=== PATIENT | male | born 1975 | race Caucasian/White ===

== ENCOUNTER 2023-03-30 06:49 | Emergency (ER) | payer OTHER, SELFPAY ==
[2023-03-30 06:51] VITALS: BP 181/103; PULSE 80; RESP 16; TEMP 37.1; O2SAT 99; BMI 38.5
--- NOTE | 2023-03-30 06:55 | NURSING ---
NO OLD EKGS
--- NOTE | 2023-03-30 07:28 | EDS_ITS ---
HPI History of Present Illness Chief Complaint: Dizziness Informant: patient Narrative Narrative: Patient is a 48-year-old male with history of hypertension and bipolar disorder presenting for dizziness and nausea. Patient states he has no pain with it. He states on Monday, 5 days ago he was at the gym and bent over and then felt a spinning sensation. Symptoms however abated and he went to work and felt okay. On Monday he woke up feeling dizzy again. The following day he felt good and then the next day again he felt dizzy, stated was hard to focus and a coworker noted he felt pale. He did take a home COVID test that day and it was negative. Yesterday he was feeling fine and then he was worse again today. Initially thought maybe his blood sugar was low as he has had issues with low blood sugar however he checked it and it was in the 90s. He takes some applesauce and rechecked and it was up to the 130s. He denies any headache, hearing changes, vision changes but has had some mild nasal congestion. He is especially concerned because his parents intermittently had similar symptoms. He states his father did have a car monoxide monitor which they put in his room and that was negative/normal. They do a family dog has not been having any vomiting or unsteady gait/symptoms. Patient looked up the symptoms and thought he might have labyrinth-itis. He came in for further evaluation. He denies any symptoms from the neck down. [facility] Medical History Bipolar 1 disorder Hypertension Home Medications meclizine 25 mg tablet 25 mg PO 4X/DAY PRN PRN Dizziness #20 tabs 03/30/23 [Rx Last Taken Unknown] Surgical History History of hernia surgery Social History Smoking Status: Current some day smoker tobacco type: cigars ROS ROS ED Constitutional Constitutional ED: Denies chills or fever(s) Eyes Eyes: Reports other Details: difficulty focusing ; Denies blurry vision, change in vision or diplopia ENT ENT ED: Reports rhinorrhea and other Details: no tinnitus ; Denies ear pain or sore throat Cardiovascular Cardiovascular: Denies chest pain or palpitations Respiratory/Chest Respiratory/Chest: Denies cough Gastrointestinal Gastrointestinal: Reports nausea; Denies abdominal pain or vomiting Musculoskeletal Musculoskeletal: Denies arthralgias, myalgias or neck pain Integumentary Denies rash Neurologic Neurologic: Denies headache(s), paresthesias or weakness EXAM Physical Exam Const Vital Signs: 03/30/23 06:51 03/30/23 06:58 Temperature 98.7 F Temperature Source Temporal Pulse Rate 80 Respiratory Rate 16 Respiratory Effort Non-Labored Respiratory Pattern Normal Blood Pressure 181/103 H Blood Pressure Mean 129 Pulse Ox 99 Oxygen Delivery Method Room Air Positive well nourished and well developed General Appearance ED: well developed and NAD HEENT Reports TM's clear and moist mucous membranes HEENT Narrative: normal nasal mucosa, normal oropharnyx Negative for trauma Tympanic Membrane ED: Yes TM's clear Eyes PERRL and EOMs intact bilaterally Eyes Narrative: Patient has bilateral fatiguing horizontal nystagmus with leftward gaze that reproduces his symptoms. No rotary or upgoing/downgoing nystagmus appreciated. Neck supple and no JVD Chest Wall inspection of chest normal and palpation of chest normal Resp normal respiratory effort and clear to auscultation bilaterally Cardio regular rate, regular rhythm and no murmurs GI normal to inspection, nondistended, normoactive bowel sounds Extremity normal to inspection General Extremety ED: Negative for edema or tenderness General Extremity: Negative for edema Neuro oriented x3, CN's II-XII intact bilaterally and no sensory deficits noted Neuro Narrative: Normal finger-nose, no truncal ataxia, normal gait, normal [id number] Sensorium / Orientation: alert Motor Exam: strength 5/5 throughout; Negative for general weakness Psych mental status grossly normal Mood & Affect: anxious Skin no rashes or lesions noted MDM MDM MDM Narrative Medical decision making narrative: Patient is evaluated for about 5 days of intermittent episodes of vertigo. He has reproducible vertigo with head movement on exam. His symptoms are quite mild. Blood pressure is mildly elevated however he does have a history of hypertension is quite anxious upon arrival. Patient did express some concern about his blood sugar and I did offered to check a BMP however patient states he just had a full lab work-up including a CMP performed and does not think that is necessary. Clinically I suspect this is peripheral vertigo and I do not suspect a central process. He does not have any other associate symptoms such as tinnitus or hearing change suggestive of labyrinthitis or M?ni?re's disease. Patient counseled that likely this is associated with either allergies or a mild viral syndrome which she does states the household has had as well. As his room was already checked for carbon monoxide he is not having any headaches have a lower suspicion for carbon monoxide poisoning. Patient is discharged with a course of meclizine and given first dose in the emergency room as well as follow-up with ENT as needed. Patient counseled to follow-up with PCP as well. Given return precautions. Discharged home in stable condition. Discharge Plan Triage Chief Complaint: Dizziness ED Provider: Francesca Ramirez Dx/Rx/DC Orders Clinical Impression: Benign paroxysmal positional vertigo Instructions: ED BPV Vertigo Prescriptions: New meclizine 25 mg tablet 25 mg PO 4X/DAY PRN PRN (Reason: Dizziness) Qty: 20 0RF Referrals: Nickolas Espinoza MD [Med Staff - Active Staff] - As Needed Disposition Disposition: Home, Self Care
[2023-03-30] MEDS: Meclizine HCl 25 MG Tablet PO (07:39)
== END 2023-03-30 07:48 | disposition home or self-care (01) ==
PROVIDERS: Emergency Provider Emergency Medicine; Visit Provider Emergency Medicine
DX: H81.10 Benign paroxysmal vertigo, unspecified ear (principal); F17.290 Nicotine dependence, other tobacco product, uncomplicated; I10 Essential (primary) hypertension
CPT/HCPCS: 99283; A4216